=== PATIENT | male | born 1990 | race Caucasian/White ===

== ENCOUNTER 2021-07-06 15:09 | Emergency (ER) | payer OTHER, SELFPAY ==
[2021-07-06 15:20] VITALS: BP 132/82; RESP 16; TEMP 37.1; O2SAT 99
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
== END 2021-07-06 15:30 | disposition short-term general hospital (02) ==
PROVIDERS: Emergency Provider Nurse Practitioner
DX: R51.9 Headache, unspecified (principal); V49.40XA Driver injured in collision with unspecified motor vehicles in traffic accident, initial encounter; F12.90 Cannabis use, unspecified, uncomplicated
CPT/HCPCS: 99212; G0463

== ENCOUNTER 2021-07-06 16:14 | Emergency (ER) | payer OTHER, SELFPAY ==
--- NOTE | ~2021-07-06 | XR_ITS ---
LUMBAR SPINE INDICATION: Low back pain TECHNIQUE: 3 views lumbar spine COMPARISON: No prior studies for comparison. FINDINGS: No fracture, subluxation or dislocation. No evidence for spondylolysis or spondylolisthesi s. Vertebral bodies and disk spaces are preserved. IMPRESSION: 1: No significant abnormality of the lumbar spine identified. Reviewed, dictated and finalized at location B. GROOMER
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
[2021-07-06 16:15] VITALS: BP 137/79; PULSE 94; RESP 16; TEMP 36.7; O2SAT 100
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
[2021-07-06] MEDS: ONDANSETRON HCL ODT 4 MG TABLET PO (18:00)
[2021-07-06] MEDS: ACETAMINOPHEN 500 MG TABLET 1000 MG PO (18:01)
== END 2021-07-06 18:46 | disposition home or self-care (01) ==
PROVIDERS: Emergency Provider General Practice
DX: S00.03XA Contusion of scalp, initial encounter (principal); S39.012A Strain of muscle, fascia and tendon of lower back, initial encounter; V49.40XA Driver injured in collision with unspecified motor vehicles in traffic accident, initial encounter
CPT/HCPCS: 70450; 72100; 73502; 99284; A9270